=== PATIENT | female | born 1985 | race Caucasian/White ===

== ENCOUNTER 2017-08-02 12:24 | Observation (INO) | payer OTHER ==
[~2017-08-02] VITALS: Ht 160 cm; Wt 74.8 kg
== END 2017-08-02 15:05 | disposition home or self-care (01) ==
LOC: 4S 12:24
PROVIDERS: ADMIT Obstetrics & Gynecology; ATTEND Obstetrics & Gynecology
DX: Z34.03 Encounter for supervision of normal first pregnancy, third trimester (principal); Z3A.37 37 weeks gestation of pregnancy
CPT/HCPCS: 59025; G0378

== ENCOUNTER 2017-08-14 08:53 | Observation (INO) | payer OTHER ==
[2017-08-14] MEDS ORDERED: OXYTOCIN 30 UNITS/LACT RINGERS 500 ML IV ONE (08:58)
[2017-08-14] MEDS ORDERED: RINGERS SOLUTION,LACTATED 1,000 ML IV PRN (08:58)
[2017-08-14] MEDS ORDERED: RINGERS SOLUTION,LACTATED 1,000 ML IV SCH (08:58)
[2017-08-14] MEDS ORDERED: FentaNYL CITRATE-PF 100 MCG/2 ML VIAL IVP PRN (09:00)
[2017-08-14] MEDS ORDERED: OXYGEN THERAPY IH SCH (09:00)
[2017-08-14] MEDS ORDERED: LIDOCAINE HCL/PF 1% 30 ML VIAL INJ PRN (09:00)
[2017-08-14] MEDS ORDERED: METOCLOPRAMIDE HCL 5 MG/ML 2 ML VIAL IVP PRN (09:00)
[2017-08-14] MEDS ORDERED: CITRIC ACID/SODIUM CITRATE 30 ML SOLUTION UDCUP PO PRN (09:00)
[2017-08-14] MEDS ORDERED: METHYLERGONOVINE MALEATE 0.2 MG/ML VIAL IM PRN (09:00)
[2017-08-14 09:24] VITALS: BP 124/79
[2017-08-14 09:58] LABS: BASOPHILS % (AUTO) 0.3 % (0.0-2.0); EOSINOPHILS % (AUTO) 0.6 % (1.0-6.0); HEMATOCRIT 37.2 % (36-46); HEMOGLOBIN 12.9 g/dL (12.0-16.0); LYMPHOCYTES # (AUTO) 1.7 K/uL (1.0-4.8); LYMPHOCYTES % (AUTO) 15.1 % (22.0-44.0); MEAN CORPUSCULAR HEMOGLOBIN 29.9 pg (26.0-34.0); MEAN CORPUSCULAR HGB CONC 34.7 G/dL (31.0-37.0); MEAN CORPUSCULAR VOLUME 86 fL (80-100); MONOCYTES # (AUTO) 0.9 K/uL (0.1-1.0); MONOCYTES % (AUTO) 7.9 % (2.0-9.0); NEUTROPHILS # (AUTO) 8.8 K/uL (1.8-7.7); NEUTROPHILS % (AUTO) 76.1 % (40.0-70.0); PLATELET COUNT (AUTO) 207 K/uL (150-450); RED BLOOD CELL COUNT(AUTO) 4.32 MIL/uL (4.00-5.20)
== END 2017-08-14 10:30 | disposition home or self-care (01) ==
LOC: 4S 08:53 → OBSVTOIN 08:53 → INTOOBSV 08:53
PROVIDERS: ADMIT Obstetrics & Gynecology; ATTEND Obstetrics & Gynecology
DX: Z34.03 Encounter for supervision of normal first pregnancy, third trimester (principal); Z3A.39 39 weeks gestation of pregnancy
CPT/HCPCS: 36415; 59025; 85025; 86850; 86900; 86901; G0378; J7120

== ENCOUNTER 2017-08-16 08:38 | Inpatient (IN) | payer OTHER ==
[~2017-08-16] VITALS: Ht 160 cm; Wt 72.1 kg
[2017-08-16] MEDS ORDERED: RINGERS SOLUTION,LACTATED 1,000 ML IV ONE (08:39)
[2017-08-16] MEDS ORDERED: METOCLOPRAMIDE HCL 5 MG/ML 2 ML VIAL IVP ONE (08:45)
[2017-08-16] MEDS ORDERED: CITRIC ACID/SODIUM CITRATE 30 ML SOLUTION UDCUP PO ONE (08:45)
[2017-08-16 09:15] VITALS: BP 109/72
[2017-08-16] MEDS ORDERED: PREN1TAB26 PO (09:18)
[2017-08-16] MEDS ORDERED: FentaNYL CITRATE-PF 100 MCG/2 ML VIAL ONE (10:08)
[2017-08-16] MEDS ORDERED: CeFAZolin 2 GM/DEXTROSE 50 ML IV ONE (10:08)
[2017-08-16] MEDS ORDERED: MORPHINE SULFATE/PF 1 MG/ML 10 ML AMP ONE (10:09)
[2017-08-16] MEDS ORDERED: LANOLIN 7 GM OINTMENT TP PRN (11:30)
[2017-08-16] MEDS ORDERED: ACETAMINOPHEN/CODEINE 300-30 MG TABLET PO PRN ×2 (11:30)
[2017-08-16] MEDS ORDERED: ONDANSETRON HCL 4 MG/2 ML VIAL IVP ONE (12:00)
[2017-08-16] MEDS ORDERED: NALOXONE HCL 0.4 MG/ML VIAL IVP PRN (12:00)
[2017-08-16] MEDS ORDERED: NALBUPHINE HCL 10 MG/ML VIAL IVP PRN (12:00)
[2017-08-16] MEDS ORDERED: EPHEDrine SULFATE 50 MG/ML VIAL IM ONE (12:00)
[2017-08-16] MEDS ORDERED: ACETAMINOPHEN 1000 MG/ISO-OSM 100 ML IV ONE ×2 (12:00→12:09)
[2017-08-16] MEDS ORDERED: DEXAMETHASONE SOD PHOS 4 MG/ML VIAL IVP ONE (12:00)
[2017-08-16] MEDS ORDERED: ONDANSETRON HCL 4 MG/2 ML VIAL IVP PRN ×2 (12:00)
[2017-08-16] MEDS ORDERED: MEPERIDINE HCL/PF 25 MG/0.5 ML AMP IVP PRN (12:00)
[2017-08-16] MEDS ORDERED: FentaNYL CITRATE-PF 100 MCG/2 ML VIAL IVP PRN ×6 (12:00)
[2017-08-16] MEDS ORDERED: OXYTOCIN 10 UNITS/ML VIAL IM ONE (12:00)
[2017-08-16] MEDS ORDERED: DEXAMETHASONE SOD PHOS 4 MG/ML VIAL IVP PRN (12:00)
[2017-08-16] MEDS ORDERED: LIDOCAINE HCL/PF 2% 5 ML VIAL INJ ONE (12:00)
[2017-08-16] MEDS ORDERED: DiphenhydrAMINE HCL 50 MG/ML VIAL IVP PRN ×2 (12:00)
[2017-08-16] MEDS ORDERED: NALBUPHINE HCL 10 MG/ML VIAL ONE (12:09)
[2017-08-16] MEDS: NALBUPHINE HCL 10 MG/ML VIAL IVP SCH ×2 (12:32→18:02)
[2017-08-16] MEDS: DEXTROSE 5%-0.45% SODIUM CHL 1,000 ML IV SCH ×2 (15:47→20:02)
[2017-08-16] MEDS: ACETAMINOPHEN 1000 MG/ISO-OSM 100 ML IV SCH (20:06)
[2017-08-17] MEDS: NALBUPHINE HCL 10 MG/ML VIAL IVP SCH ×2 (00:02→06:06)
[2017-08-17] MEDS: DEXTROSE 5%-0.45% SODIUM CHL 1,000 ML IV SCH ×2 (00:34→04:57)
[2017-08-17] MEDS: ACETAMINOPHEN 1000 MG/ISO-OSM 100 ML IV SCH (04:01)
[2017-08-17] MEDS: IBUPROFEN 800 MG TABLET PO SCH ×3 (05:08→16:51)
[2017-08-17] MEDS: MAGNESIUM HYDROXIDE SUSPENSION 30 ML UDCUP PO SCH ×2 (08:57→21:20)
[2017-08-18] MEDS: IBUPROFEN 800 MG TABLET PO SCH ×5 (01:11→23:53)
[2017-08-18] MEDS: MAGNESIUM HYDROXIDE SUSPENSION 30 ML UDCUP PO SCH ×2 (09:16→21:00)
[2017-08-19] MEDS: IBUPROFEN 800 MG TABLET PO SCH (06:07)
[2017-08-19] MEDS ORDERED: DSS100 PO (11:26)
[2017-08-19] MEDS ORDERED: IBUP-2071 PO (11:26)
[2017-08-19] MEDS ORDERED: ACET1TAB12 PO (11:27)
== END 2017-08-19 14:00 | disposition home or self-care (01) | DRG 766 ==
LOC: 4S 08:38 → OBSVTOIN 08:38
PROVIDERS: ADMIT Obstetrics & Gynecology; ATTEND Obstetrics & Gynecology
PROC: 10D00Z1 Extraction of Products of Conception, Low, Open Approach (ICD-10-PCS; principal; 2017-08-16)
DX: O69.81X0 Labor and delivery complicated by cord around neck, without compression, not applicable or unspecified (principal); Z37.0 Single live birth; Z3A.39 39 weeks gestation of pregnancy
CPT/HCPCS: 86850; 86900; 86901; 87081; J0131; J0690; J1100; J2300; J2405; J2590; J2765; J3010; J3490; J7120